=== PATIENT | male | born 1950 | race Caucasian/White ===

== ENCOUNTER → 2017-11-25 | Outpatient (CLI) | payer MEDICARE | END | disposition home or self-care (01) | LOC: CVU 14:50 | PROVIDERS: ATTEND Family Medicine | DX: I99.9 Unspecified disorder of circulatory system (principal); I25.10 Atherosclerotic heart disease of native coronary artery without angina pectoris; E78.5 Hyperlipidemia, unspecified; Z87.891 Personal history of nicotine dependence | CPT/HCPCS: 93922 ==

== ENCOUNTER → 2017-12-28 | Outpatient (CLI) | payer MEDICARE | END | disposition home or self-care (01) | LOC: CVU 12:55 | PROVIDERS: ATTEND Internal Medicine Cardiovascular Disease | DX: I65.23 Occlusion and stenosis of bilateral carotid arteries (principal); I25.10 Atherosclerotic heart disease of native coronary artery without angina pectoris | CPT/HCPCS: 93880 ==

== ENCOUNTER → 2018-04-12 | Outpatient (CLI) | payer MEDICARE ==
[~2018-04-12] MED LIST: OMNIPAQUE 350 MG/ML, 100ML BOTTLE ONE
== END | disposition home or self-care (01) ==
LOC: CFH 08:41
PROVIDERS: ATTEND Internal Medicine Cardiovascular Disease
DX: I65.21 Occlusion and stenosis of right carotid artery (principal); J43.9 Emphysema, unspecified; I99.9 Unspecified disorder of circulatory system
CPT/HCPCS: 73206; 82565; Q9967

== ENCOUNTER 2018-06-14 06:53 | Day surgery (SDC) | payer MEDICARE ==
[~2018-06-14] VITALS: Ht 185.4 cm; Wt 130.0 kg
[2018-06-14 07:29] VITALS: BP 103/73
[2018-06-14] MEDS ORDERED: LIDOCAINE-MPF 1%, 5ML ONE (07:47)
[2018-06-14 07:57] LABS: BASOPHILS # (AUTO) 0.06 x10^3/uL (0-0.1); BASOPHILS % (AUTO) 1 % (0-1); EOSINOPHILS # (AUTO) 0.21 x10^3/uL (0-0.4); EOSINOPHILS % (AUTO) 2 % (1-7); LYMPHOCYTES # (AUTO) 1.82 x10^3/uL (1-3.4); LYMPHOCYTES % (AUTO) 21 % (22-44); MD NO; MEAN CORPUSCULAR HEMOGLOBIN 30.5 pg (27.5-34.5); MEAN CORPUSCULAR HGB CONC 33.9 g/dL (33.2-36.2); MEAN CORPUSCULAR VOLUME 89.9 fL (81-97); MEAN PLATELET VOLUME 9.8 fL (7.4-10.4); MONOCYTES # (AUTO) 0.69 x10^3/uL (0.2-0.8); MONOCYTES % (AUTO) 8 % (2-9); NEUTROPHILS # (AUTO) 6.02 x10^3/uL (1.8-6.8); NEUTROPHILS % (AUTO) 68 % (42-75); PLATELET COUNT 206 x10^3/uL (130-400); RED BLOOD COUNT 5.68 x10^6/uL (4.38-5.82); RED CELL DISTRIBUTION WIDTH 14.2 % (9.4-14.8)
[2018-06-14] MEDS ORDERED: VISIPAQUE 270 MG/ML, 50ML BOTTLE ONE (08:00)
[2018-06-14 08:11] LABS: ANION GAP 8 mmol/L (5-15); CALCIUM 8.5 mg/dL (8.5-10.1); CHLORIDE 110 mmol/L (98-107)
[2018-06-14 08:15] LABS: ALANINE AMINOTRANSFERASE 48 U/L (12-78); ALKALINE PHOSPHATASE 95 U/L (45-117); BILIRUBIN,TOTAL 0.6 mg/dL (0.2-1.0); CREATININE 1.16 mg/dL (0.7-1.3)
[2018-06-14] MEDS ORDERED: FENTANYL PF 100 MCG/2ML ONE (08:29)
[2018-06-14] MEDS ORDERED: MIDAZOLAM 1 MG/ML, 5ML ONE (08:29)
[2018-06-14] MEDS ORDERED: NALOXONE 1 MG/ML, 2ML ONE (08:30)
[2018-06-14] MEDS ORDERED: PROTAMINE SULFATE 10 MG/ML, 25ML ONE (08:30)
[2018-06-14] MEDS ORDERED: FLUMAZENIL 0.1 MG/1 ML, 5ML ONE (08:30)
[2018-06-14] MEDS ORDERED: HEPARIN 1,000 UNITS/ML, 10ML ONE ×2 (08:30→09:35)
[2018-06-14] MEDS ORDERED: NITROGLYCERIN 5 MG/ML, 10ML ONE (08:30)
[2018-06-14] MEDS ORDERED: LACTATED RINGERS 1,000 ML IV SCH (10:39)
[2018-06-14] MEDS ORDERED: CLOP75TA52 PO (10:49)
[2018-06-14] MEDS ORDERED: HYDROcodone/APAP 5/325 TABLET PO PRN (11:00)
[2018-06-14] MEDS ORDERED: ONDANSETRON 2MG/ML, 2ML IVPush PRN (11:00)
[2018-06-14] MEDS ORDERED: CLOPIDOGREL 75 MG TABLET PO ONE (11:00)
[2018-06-15] MEDS ORDERED: ASPIRIN 81 MG TABLET EC PO SCH (06:00)
[2018-06-15] MEDS ORDERED: CLOPIDOGREL 75 MG TABLET PO SCH (09:00)
== END 2018-06-14 12:12 | disposition home or self-care (01) ==
LOC: OUT 06:53
PROVIDERS: ATTEND Surgery
DX: I70.218 Atherosclerosis of native arteries of extremities with intermittent claudication, other extremity (principal); I10 Essential (primary) hypertension; Z87.891 Personal history of nicotine dependence
CPT/HCPCS: 36415; 37236; 75710; 80053; 85025; 99156; 99157; C1725; C1751; C1769; C1876; C1894; J1644; J2250; J2720; J3010; Q9966; J2310

== ENCOUNTER → 2019-08-16 | Outpatient (CLI) | payer MEDICARE ==
[~2019-08-16] MED LIST changes: +CLOP75TA52 PO; -OMNIPAQUE 350 MG/ML, 100ML BOTTLE ONE
== END | disposition home or self-care (01) ==
LOC: CVU 08:20
PROVIDERS: ATTEND Registered Nurse
DX: I65.23 Occlusion and stenosis of bilateral carotid arteries (principal); I77.1 Stricture of artery
CPT/HCPCS: 93880

== ENCOUNTER → 2020-05-17 | Outpatient (CLI) | payer MEDICARE ==
[~2020-05-17] MED LIST changes: +REGADENOSON 0.4 MG/5 ML SYRINGE ONE
== END | disposition home or self-care (01) ==
LOC: CFH 08:47
PROVIDERS: ATTEND Internal Medicine Cardiovascular Disease
DX: I21.19 ST elevation (STEMI) myocardial infarction involving other coronary artery of inferior wall (principal); I25.9 Chronic ischemic heart disease, unspecified; I77.1 Stricture of artery; Z98.61 Coronary angioplasty status
CPT/HCPCS: 78452; 93017; A9502; J2785

== ENCOUNTER → 2020-07-02 | Outpatient (CLI) | payer MEDICARE ==
[~2020-07-02] MED LIST changes: -REGADENOSON 0.4 MG/5 ML SYRINGE ONE
== END | disposition home or self-care (01) ==
LOC: CFH 09:05
PROVIDERS: ATTEND Internal Medicine Cardiovascular Disease
DX: J84.10 Pulmonary fibrosis, unspecified (principal); R91.8 Other nonspecific abnormal finding of lung field
CPT/HCPCS: 71250

== ENCOUNTER 2020-10-02 10:53 | Observation (INO) | payer MEDICARE ==
[~2020-10-02] VITALS: Ht 185.4 cm; Wt 125.0 kg
[2020-10-02] MEDS ORDERED: [UNRECOGNIZED DRUG - CODE] TD (12:07)
[2020-10-02] MEDS ORDERED: FLUT9.9S NAS (12:07)
[2020-10-02] MEDS ORDERED: UBID100C41 PO (12:07)
[2020-10-02] MEDS ORDERED: LORA10TA72 PO (12:07)
[2020-10-02] MEDS ORDERED: PUMP160C2 PO (12:07)
[2020-10-02] MEDS ORDERED: ASPI81TA45 PO (12:07)
[2020-10-02] MEDS ORDERED: OMEG1CAP23 PO (12:07)
[2020-10-02] MEDS ORDERED: VARD10TA4 PO (12:07)
[2020-10-02] MEDS ORDERED: ATOR80TA PO (12:07)
[2020-10-02 12:40] LABS: BASOPHILS % (AUTO) 1 % (0-1); EOSINOPHILS % (AUTO) 1 % (1-7); LYMPHOCYTES % (AUTO) 19 % (22-44); MEAN CORPUSCULAR HEMOGLOBIN 31.7 pg (27.5-34.5); MEAN CORPUSCULAR HGB CONC 34.4 g/dL (33.2-36.2); MEAN PLATELET VOLUME 8.9 fL (7.4-10.4); MONOCYTES % (AUTO) 11 % (2-9); NEUTROPHILS % (AUTO) 68 % (42-75); PLATELET COUNT 156 x10^3/uL (130-400); RED BLOOD COUNT 5.33 x10^6/uL (4.38-5.82)
[2020-10-02 12:52] LABS: ANION GAP 7 mmol/L (5-15); CALCIUM 8.1 mg/dL (8.5-10.1); CHLORIDE 109 mmol/L (98-107); CREATININE 0.98 mg/dL (0.7-1.3)
[2020-10-02] MEDS ORDERED: LIDOCAINE-MPF 1%, 5ML ONE (12:53)
[2020-10-02] MEDS ORDERED: MIDAZOLAM 1 MG/ML, 5ML ONE (12:53)
[2020-10-02] MEDS ORDERED: HEPARIN 1,000 UNITS/ML, 10ML ONE (12:53)
[2020-10-02] MEDS ORDERED: FENTANYL PF 100 MCG/2ML ONE (12:53)
[2020-10-02] MEDS ORDERED: VERAPAMIL 2.5 MG/ML, 2ML ONE (12:53)
[2020-10-02] MEDS ORDERED: BIVALIRUDIN 250 MG ONE ×2 (13:28→13:54)
[2020-10-02] MEDS ORDERED: TICAGRELOR 90 MG TABLET ONE (13:28)
[2020-10-02] MEDS ORDERED: BIVALIRUDIN 250 MG in SODIUM CHLORIDE 0.9% 50 ML IV SCH (14:20)
[2020-10-02] MEDS ORDERED: ACETAMINOPHEN 325 MG TABLET PO PRN (14:30)
[2020-10-02] MEDS ORDERED: LORATADINE 10 MG TABLET PO PRN (14:30)
[2020-10-02] MEDS ORDERED: SODIUM CHLORIDE 0.9% 1,000 ML IV SCH (14:30)
[2020-10-02] MEDS ORDERED: ZOLPIDEM 5MG TABLET PO PRN (14:30)
[2020-10-02] MEDS ORDERED: FLUTICASONE NASAL SPRAY 16GM NAS PRN (14:30)
[2020-10-02 18:36] VITALS: BP 125/71
[2020-10-02 19:53] VITALS: BP 135/81
[2020-10-02] MEDS: TICAGRELOR 90 MG TABLET PO SCH (20:45)
[2020-10-02] MEDS ORDERED: ATORVASTATIN 80 MG TABLET PO SCH (21:00)
[2020-10-03 01:06] VITALS: BP 126/83
[2020-10-03 04:46] LABS: ANION GAP 6 mmol/L (5-15); CALCIUM 8.4 mg/dL (8.5-10.1); CHLORIDE 108 mmol/L (98-107)
[2020-10-03 07:10] VITALS: BP 122/76
[2020-10-03] MEDS ORDERED: TICA90TA PO (08:14)
[2020-10-03] MEDS: TICAGRELOR 90 MG TABLET PO SCH (08:14)
[2020-10-03] MEDS ORDERED: ACET325T26 PO (08:14)
[2020-10-03] MEDS ORDERED: OMEGA-3/FISH OIL CAPSULE PO SCH (09:00)
[2020-10-03] MEDS ORDERED: TEMPLATE NON-FORMULARY MED. (Ubidecarenone** (Co Q-10**) 100 MG) PO SCH (09:00)
[2020-10-03] MEDS ORDERED: ASPIRIN 81 MG TABLET EC PO SCH ×2 (09:00)
== END 2020-10-03 10:31 | disposition home or self-care (01) ==
LOC: CACL 10:53 → 5SO 14:04 → CACL 14:04 → 5SO 14:14
PROVIDERS: ADMIT Internal Medicine Cardiovascular Disease; ATTEND Internal Medicine Cardiovascular Disease
DX: I25.10 Atherosclerotic heart disease of native coronary artery without angina pectoris (principal); T82.855A Stenosis of coronary artery stent, initial encounter; E78.5 Hyperlipidemia, unspecified; R91.1 Solitary pulmonary nodule; Y83.1 Surgical operation with implant of artificial internal device as the cause of abnormal reaction of the patient, or of later complication, without mention of misadventure at the time of the procedure; Z95.820 Peripheral vascular angioplasty status with implants and grafts; Z87.891 Personal history of nicotine dependence; Z98.61 Coronary angioplasty status
CPT/HCPCS: 36415; 80048; 85025; 93005; 93454; 99156; 99157; C1725; C1769; C1874; C1887; C1894; C9600; G0378; J0583; J1644; J2250; J3010; Q9967